=== PATIENT | male | born 1965 | race Caucasian/White ===

== ENCOUNTER 2016-09-05 11:02 | Day surgery (SDC) | payer BC ==
[2016-09-02 11:02] VITALS: BMI 42.0
--- NOTE | 2016-09-05 08:00 | P.GSHP ---
History of Present Illness H&P Date: 09/05/16 CHIEF COMPLAINT: Ventral hernia HISTORY OF PRESENT ILLNESS: The patient is a 51-year-old male who presents with a history of swelling and pain along the abdomen from a hernia. His previous history of ileostomy reversal the right lower quadrant. Studies are consistent with possible incarcerated incisional hernia involving small bowel. Now he presents for surgical intervention. PAST MEDICAL HISTORY: Please see list. PAST SURGICAL HISTORY: Please see list. MEDICATIONS: Please see list. ALLERGIES: Please see list. SOCIAL HISTORY: No illicit drug use FAMILY HISTORY: No reports of Crohn disease or ulcerative colitis. REVIEW OF ORGAN SYSTEMS: CONSTITUTIONAL: No reports of fevers or chills. No reports of weight loss despite prior attempts. GI: Denies any blood in stools. This change in bowel habits. PHYSICAL EXAM: VITAL SIGNS: Stable GENERAL: Well-developed pleasant male in no acute distress. HEENT: No scleral icterus. Extraocular movements grossly intact. Moist buccal mucosa. NECK: Supple without lymphadenopathy. CHEST: Unlabored respirations. Equal bilateral excursions. CARDIOVASCULAR: Regular rate and rhythm. Distal 2+ pulses. ABDOMEN: Soft, nondistended. Palpable defect of the abdomen. No peritoneal signs. MUSCULOSKELETAL: No clubbing, cyanosis, or edema. ASSESSMENT: 1. Incisional ventral hernia PLAN: 1. Recommend proceeding with robotic-assisted laparoscopic incisional ventral hernia repair with mesh. 2. Benefits and risks of surgical intervention was discussed including possibility of open technique. 3. DVT prophylaxis. 4. Antibiotic prophylaxis. 5. Will need CBC and CMP on day of procedure. Past Medical History Past Medical History: No Reported History Additional Past Medical History / Comment(s): OCTOBER 2015 DIVERTICULITIS W/ BOWEL OBSTRUCTION & ILEOSTOMY SURGERY., Hx. of TACHYCARDIA after surgeries. History of Any Multi-Drug Resistant Organisms: None Reported Additional Past Surgical History / Comment(s): RIGHT ELBOW, ILEOSTOMY 10/15/15., PICC LINE INSERTED AND REMOVED. 11/16/15 LOW ANTERIOR RESECTION., COLONOSCOPY. REVERSAL OF ILEOSTOMY Past Anesthesia/Blood Transfusion Reactions: Previous Problems w/ Anesthesia Additional Past Anesthesia/Blood Transfusion Reaction / Comment(s): VERSED GAVE HIM HALLUCINATIONS FOR DAYS AFTER SURGERY. Past Psychological History: No Psychological Hx Reported Smoking Status: Current every day smoker Past Alcohol Use History: Occasional Additional Past Alcohol Use History / Comment(s): Smokes 4 -5 cigars/week on & off. Past Drug Use History: None Reported - Past Family History Mother Family Medical History: Diabetes Mellitus, Hypertension Father Family Medical History: Diabetes Mellitus Medications and Allergies Home Medications Medication Instructions Recorded Confirmed Type Cholecalciferol [Vitamin D3] 5,000 unit PO DAILY 10/07/15 01/18/16 History Multivitamins, Thera [Multivitamin 1 tab PO DAILY 11/05/15 01/18/16 History (formulary)] Allergies Allergy/AdvReac Type Severity Reaction Status Date / Time midazolam HCl [From Versed] AdvReac Unknown Hallucinations Verified 09/02/16 10: 25 for days
[~2016-09-05 11:02] MED LIST: ACETAMINOPHEN IV (For NPO) 1,000 MG in EMPTY BAG 1 BAG IVPB ONE; DEXAMETHASONE SOD PHOSPHATE 10 MG/ML 1 ML VIAL IV ONE; HEPARIN SODIUM,PORCINE 5,000 UNIT/ML 1 ML VIAL SQ ONE; LACTATED RINGERS 1,000 ML IV SCH; LIDOCAINE 1% 20 ML VIAL (10MG/ML) FOR IV START INTRADERMA PRN; ONDANSETRON 4 MG/2 ML VIAL IVP ONE; SCOPOLAMINE 1.5MG/72HR PATCH TRANSDERM ONE; ceFAZolin 3 GM in SODIUM CHLORIDE 0.9% 100 ML IVPB ONE
[2016-09-05 11:32] LABS: CH 29.5; CHCM 32.7; HCT 44.3 % (39.0-53.0); HDW 2.22; HGB 14.5 gm/dL (13.0-17.5); MCH 29.7 pg (25.0-35.0); MCHC 32.8 g/dL (31.0-37.0); MCV 90.7 fL (80.0-100.0); Mean Platelet Volume 7.4; RBC 4.88 m/uL (4.30-5.90); RDW 14.5 % (11.5-15.5); WBC 6.3 k/uL (3.8-10.6)
[2016-09-05 12:44] LABS: ALT 29 U/L (21-72); AST 16 U/L (17-59); Alkaline Phosphatase 54 U/L (38-126); Anion Gap 6 mmol/L; Blood Urea Nitrogen 20 mg/dL (9-20); Calcium 9.1 mg/dL (8.4-10.2); Carbon Dioxide 27 mmol/L (22-30); Chloride 106 mmol/L (98-107); Glucose 118 mg/dL (74-99); Non-African American GFR(MDRD) >60 (>60 ml/min/1.73 sqM); Potassium 4.4 mmol/L (3.5-5.1); Sodium 139 mmol/L (137-145); Total Bilirubin 0.7 mg/dL (0.2-1.3); Total Protein 6.9 g/dL (6.3-8.2)
[2016-09-05] MEDS ORDERED: SUCCINYLCHOLINE CHLORIDE 100 MG/5 ML SYR IV ONE (13:16)
[2016-09-05] MEDS ORDERED: GLYCOPYRROLATE 0.2 MG/ML 2 ML VIAL ONE (13:16)
[2016-09-05] MEDS ORDERED: PROPOFOL 10 MG/ML 20 ML VIAL IV ONE (13:16)
[2016-09-05] MEDS ORDERED: fentaNYL (PF) 50 MCG/ML 2 ML AMP ONE (13:16)
[2016-09-05] MEDS ORDERED: ROCURONIUM BROMIDE 10 MG/ML 10 ML VIAL IV ONE (13:16)
[2016-09-05] MEDS ORDERED: LIDOCAINE 1% INJ 10MG/ML (20 ML MDV) ONE (13:16)
[2016-09-05] MEDS ORDERED: NEOSTIGMINE 1 MG/ML 10 ML VIAL ONE (13:16)
[2016-09-05] MEDS ORDERED: BUPIVACAIN-EPI 0.25%-1:200,000 30 ML VIAL SQ ONE ×2 (13:53)
[2016-09-05] MEDS ORDERED: LACTATED RINGERS 1,000 ML IV ONE (14:19)
[2016-09-05] MEDS: HYDROmorphone 1 MG/ML 1 ML SYRINGE IVP PRN ×4 (15:45→16:26)
[2016-09-05 15:55] VITALS: TEMP 97.6
[2016-09-05] MEDS ORDERED: KETOROLAC 30 MG/ML 1 ML VIAL IVP ONE (16:07)
[2016-09-05] MEDS ORDERED: NALOXONE 0.4 MG/ML 1 ML VIAL IV PRN (16:16)
[2016-09-05] MEDS ORDERED: HYDROcodone/APAP 5-325MG 1 EACH TAB PO PRN (16:16)
--- NOTE | 2016-09-05 16:41 | P.OP ---
Date of Procedure: 09/05/16 Preoperative Diagnosis: Postoperative Diagnosis: Procedure(s) Performed: Implants: Indications for Procedure: Operative Findings: Description of Procedure: SURGEON: PETEY REYNA MD MACHINE STITCHER: Kelsi Amos PREOPERATIVE DIAGNOSES: 1. Initial incisional ventral hernia with intermittent small bowel obstruction. 2. Previous history of diverticulitis requiring right lower quadrant ileostomy and subsequent reversal. 3. Right lower quadrant abdominal pain and swelling. 4. Morbid obesity, BMI 42.1. 5. Hypertension. 6. Obstructive sleep apnea. 7. Glucose intolerance. 8. Change in bowel habits. POSTOPERATIVE DIAGNOSES: 1. Initial incisional ventral hernia with intermittent small bowel obstruction , 4 x 5 cm, right lower quadrant. 2. Previous history of diverticulitis requiring right lower quadrant ileostomy and subsequent reversal. 3. Right lower quadrant abdominal pain and swelling. 4. Morbid obesity, BMI 42.1. 5. Hypertension. 6. Obstructive sleep apnea. 7. Glucose intolerance. 8. Change in bowel habits. OPERATION: 1. Robotic-assisted laparoscopic repair of initial incisional ventral hernia 4 x 5 cm with [address]ight [address] mesh 10 x 15 cm. ANESTHESIA: General with 90 mL 0.25% marcaine with epinephrine. ESTIMATED BLOOD LOSS: 5 mL. SPECIMENS: None. COMPLICATIONS: None. INDICATIONS: The patient is a 51-year-old male who presents with incisional ventral hernia of the right lower quadrant following a previous ileostomy reversal for diverticulitis with complete large bowel obstruction. Surgical intervention with laparoscopic versus robotic and open techniques were reviewed. Placement of mesh was also reviewed. Benefits and risks were thoroughly described. Informed consent was obtained. DESCRIPTION OF PROCEDURE: The patient was brought into the operating room and laid in supine position. After general induction, the abdomen had been prepped and draped in standard sterile fashion. Ioban draping was also placed. Prior to incision, a timeout protocol was confirmed with surgical team regarding the patient's name including procedures to be performed. The robot was primed prior to the procedure. A field block using local anesthetis was placed along hernia site including the proposed port sites. Initial incision was made with an #11 blade along the left upper quadrant. A 0 degree 5 mm laparoscopic trocar entry was performed. Diagnostic laparoscopy demonstrated a large fascial defect of the right lower quadrant measured of 4 cm x 5 cm. Peritoneal adhesions of small bowel to the abdominal wall along the midline was identified. A 12 mm trocar was placed along the left lateral abdominal wall approximately 12 cm lateral to the lower midline. An 8 mm port was placed along the left lower quadrant under direct localization. The 5-mm port was exchanged for an 8 mm robotic port. Placements of the ports were 20 cm from the target anatomy and approximately 10 cm apart. Next, a 10 x [address] mesh was entered into abdominal cavity under direct visualization with 2-0 V-Loc sutures anchored equidistant along the edge of the mesh along the rough side of the mesh that was marked. The peritoneum was marked for placement of the mesh after using a spinal needle to identify borders of the mesh which was marked with indelible marker on the skin. The da [employer] SI robot was previously primed, prepped and draped then docked along the right side of the patient. I then sat at the robot [employer] SI console where working arms of the robot including Bovie cautery connected to robotic scissors and graspers placed by training and development assistant Kelsi Amos. Adhesions along the midline were initially addressed with scissors and gentle retraction along the small bowel without enterotomy. The hernia bordering fascia was cleaned of peritoneal fat to allow for 3 to 5 cm margin of the mesh. Next, hemostasis was checked with cautery. The hernia defect was oversewn using 0-V LOC with imbrication 2. Ventralight ST 10 x 15 cm mesh was placed with the rough side of the mesh toward the anterior abdominal wall. The smooth side was placed towards the bowel. Starting from 12 o'clock, 4 o'clock and 8 o'clock position , 2-0 V-Loc suture was sewn from peritoneum to fascia to the mesh approach. A final endoscopic imaging was obtained. All instruments and pneumoperitoneum were evacuated from the abdominal cavity. The [employer] SI robot was undocked from the patient. I re-scrubbed into the case for closure of incisions. The fascia of the 12-mm port was probed and was closed using 0 Vicryl and Андрей Metz. The incisions were reapproximated using 4-0 Monocryl in an interrupted subcuticular fashion. Dermabond was applied to the skin. At the end of the procedure, needle, sponge, and instrument count had been verified correct by rn medical surgical. The patient was taken to the postanesthesia care unit in stable condition with abdominal binder. FINDINGS: 1. Initial incisional hernia right lower quadrant 4 x 5 cm. 2. Peritoneal adhesions small bowel to abdominal wall along midline lysed without enterotomies. Plan - Discharge Summary New Discharge Prescriptions: New Hydrocodone/Acetaminophen [[place] 5-325] 1 - 2 each PO Q6HR PRN #20 tab PRN Reason: Pain No Action Cholecalciferol [Vitamin D3] 5,000 unit PO DAILY Multivitamins, Thera [Multivitamin (formulary)] 1 tab PO DAILY Discharge Medication List Cholecalciferol [Vitamin D3] 5,000 unit PO DAILY 10/07/15 [History] Multivitamins, Thera [Multivitamin (formulary)] 1 tab PO DAILY 11/05/15 [History ] Hydrocodone/Acetaminophen [[place] 5-325] 1 - 2 each PO Q6HR PRN #20 tab 09/05/16 [Rx] Follow up Appointment(s)/Referral(s): Petey Reyna MD [STAFF PHYSICIAN] - 09/20/16 (Please call to confirm time) Patient Instructions/Handouts: *Surgery [facility] - (Anesthesia) Discharge Instructions Outpatient Surgery, Laparoscopic Herniorrhaphy (DC), Abdominal Binder (DC) Activity/Diet/Wound Care/Special Instructions: No lifting over 4 pounds in 2 weeks. May shower. No bath tub soaks. Discharge Disposition: HOME SELF-CARE
[2016-09-05 17:00] VITALS: RESP 18
[2016-09-05 17:19] VITALS: BP 120/73; PULSE 91
== END 2016-09-05 18:00 | disposition home or self-care (01) ==
LOC: OR 11:02
PROVIDERS: ATTEND Surgery Plastic and Reconstructive Surgery
DX: K43.2 Incisional hernia without obstruction or gangrene (principal); K43.9 Ventral hernia without obstruction or gangrene; K66.0 Peritoneal adhesions (postprocedural) (postinfection); Z87.19 Personal history of other diseases of the digestive system; E66.01 Morbid (severe) obesity due to excess calories; Z68.41 Body mass index [BMI] 40.0-44.9, adult; I10 Essential (primary) hypertension; G47.33 Obstructive sleep apnea (adult) (pediatric); E74.39 Other disorders of intestinal carbohydrate absorption; R19.4 Change in bowel habit; F17.290 Nicotine dependence, other tobacco product, uncomplicated; Z79.899 Other long term (current) drug therapy
CPT/HCPCS: 80053; 85027; 49654; C1781; J1644; J1100; J2710; J0690; J2405; J2001; J3010; J1885; J1170; J0131; J0330; J2704

== ENCOUNTER → 2021-10-13 | Outpatient (CLI) | payer OTHER ==
--- NOTE | 2021-10-13 14:17 | XR ---
EXAMINATION TYPE: XR KUB DATE OF EXAM: 10/13/2021 COMPARISON: NONE HISTORY: Pain TECHNIQUE: One view abdominal series FINDINGS: The osseous structures are intact. The bowel gas pattern is nonspecific. Calcifications in the left abdomen are noted compatible with renal calculi the largest measuring 9.7 mm. Retained fecal debris t hroughout the colon. Hypertrophic degenerative change of the spine. Calcific density or sclerotic den sity overlying the posterior margin of the right 10th rib. A tiny punctate calcification measuring 2 mm overlying the right kidney. IMPRESSION: 1. Suspect 2 mm lower pole right renal calculus. 2. Suspect two calcifications overlying the lower pole the left kidney the largest measuring 9.7 mm. 3. sclerotic lesion overlying the right 10th rib possibly related to bone.
== END | disposition home or self-care (01) ==
LOC: RADXRMAIN 13:40
PROVIDERS: ATTEND Urology
DX: R10.9 Unspecified abdominal pain (principal); R31.29 Other microscopic hematuria
CPT/HCPCS: 74018

== ENCOUNTER → 2021-11-30 | Outpatient (CLI) | payer OTHER ==
--- NOTE | 2021-11-30 10:15 | MR ---
EXAMINATION TYPE: MR Prostate wo/w con DATE OF EXAM: 11/30/2021 10:00 AM COMPARISON: CT abdomen pelvis 10/07/2015. CLINICAL INDICATION:Male, 56 years old with history of Z87.891 personal hx of tobacco use; TECHNIQUE: Multi-planar, multi-sequence imaging of the pelvis is performed prior to and following the uncomplicated administration of bolus intravenous gadolinium. CONTRAST: 14 Gadavist Interpretive Criteria: PI-RADS v2.1 SERUM PSA: 7.1 on 10/13/2021. SURGICAL PATHOLOGY: No data available. FINDINGS: Prostatic dimensions: 6.1 x 5.6 x 6.3 cm. Ellipsoid Volume:112.68 (PSA density=0.06 ng/mL/mL) PSA density: 0.06 ng/mL/mL. CENTRAL GLAND (Central and Transition Zones/CZ+TZ): Multiple bilateral, heterogenous appearing hypertrophic stromal nodules, without suspicious lesion. M edian lobe hypertrophy with protrusion into the base of the bladder. (PI-RADS 2) PERIPHERAL ZONE (PZ): Bilateral linear, indistinct wedgelike areas of low ADC, and low T2 signal, No evidence of masslike a bnormality, or localized perfusional hypervascularity, to further suggest a focus of clinically signi ficant prostate cancer. (PI-RADS 2) SEMINAL VESICLES (SV): Symmetric and unremarkable. PERIPROSTATIC TISSUES: Unremarkable. LYMPH NODES: No enlarged pelvic lymph node. REMAINING PELVIS: Bladder wall is within normal limits given distention. No abnormal free or organized intrapelvic fluid collection. No pathologic bowel dilation or mural thickening. The right ureter is asymmetrically dilated measuring up to 9 mm. OSSEOUS STRUCTURES: The inferior pubic ramus high T2 signal low T1 signal cysts. No suspicious osseous abnormality. IMPRESSION: 1. No specific features for high-risk prostate cancer. There are numerous circumscribed transition zo ne nodules and low-risk peripheral zone abnormalities (PI-RADS 2). 2. Right hydroureter which is asymmetric and could be physiologic. There is concern for hydronephrosi s 3. Substantial BPH, estimated gland volume 113 mL.
== END | disposition home or self-care (01) ==
LOC: RADMRIMAIN 08:34
PROVIDERS: ATTEND Urology
DX: R97.20 Elevated prostate specific antigen [PSA] (principal); Z87.891 Personal history of nicotine dependence
CPT/HCPCS: 72197; A9585

== ENCOUNTER 2021-12-02 08:50 | Emergency (ER) | payer OTHER ==
[2021-12-02 09:06] VITALS: BP 149/79; TEMP 97.5
[2021-12-02] MEDS ORDERED: SODIUM CHLORIDE 0.9% 1,000 ML IV STA (09:43)
[2021-12-02] MEDS ORDERED: ONDANSETRON 4 MG/2 ML VIAL IVP STA (09:43)
[2021-12-02] MEDS ORDERED: SODIUM CHLORIDE 0.9% 500 ML 500 ML IV STA (09:43)
[2021-12-02] MEDS ORDERED: KETOROLAC 15 MG/ML 1 ML VIAL IVP STA (09:43)
--- NOTE | 2021-12-02 10:03 | ED ---
Abdominal Pain HPI - General Chief Complaint: Abdominal Pain Stated Complaint: R side pain Time Seen by Provider: 12/02/21 09:09 Source: patient, RN notes reviewed Mode of arrival: ambulatory Limitations: no limitations - History of Present Illness Initial Comments: This a 56-year-old male present emergency department with chief complaint of right-sided flank pain. Patient states she was seen by urology recently and an ultrasound showing multiple stones. Patient states today started having severe pain that radiated around to his lower abdomen from his right flank. Patient does admit to nausea vomiting he took some old [place] with no relief. Denies any fevers chills he has notany hematuria or complaint of any dysuria. Denies chest pain shortness breath fever chills or any left-sided abdominal pain. - Related Data Home Medications Medication Instructions Recorded Confirmed Atorvastatin [Lipitor] 10 mg PO HS 12/02/21 12/02/21 Dulaglutide [Trulicity] 1.5 mg SQ MO 12/02/21 12/02/21 Metoprolol Succinate (ER) [Toprol 25 mg PO BID 12/02/21 12/02/21 Xl] Previous Rx's Medication Instructions Recorded HYDROcodone/APAP 5-325MG [[place] 5] 1 each PO Q6HR PRN #12 tab 12/02/21 Ketorolac [Toradol] 10 mg PO Q8HR #15 tab 12/02/21 Ondansetron Odt [Zofran Odt] 4 mg PO Q8HR PRN #10 tab 12/02/21 Tamsulosin [Flomax] 0.4 mg PO DAILY #7 cap 12/02/21 Allergies Allergy/AdvReac Type Severity Reaction Status Date / Time midazolam HCl [From Versed] AdvReac Unknown Hallucinations Verified 12/02/21 11:04 for days Review of Systems ROS Statement: Those systems with pertinent positive or pertinent negative responses have been documented in the HPI. ROS Other: All systems not noted in ROS Statement are negative. Past Medical History Past Medical History: No Reported History Additional Past Medical History / Comment(s): OCTOBER 2015 DIVERTICULITIS W/ BOWEL OBSTRUCTION & ILEOSTOMY SURGERY., Hx. of TACHYCARDIA after surgeries. History of Any Multi-Drug Resistant Organisms: None Reported Additional Past Surgical History / Comment(s): RIGHT ELBOW, ILEOSTOMY 10/15/15., PICC LINE INSERTED AND REMOVED. 11/16/15 LOW ANTERIOR RESECTION., COLONOSCOPY.01-18-16 REVERSAL OF ILEOSTOMY Past Anesthesia/Blood Transfusion Reactions: Previous Problems w/ Anesthesia Additional Past Anesthesia/Blood Transfusion Reaction / Comment(s): VERSED GAVE HIM HALLUCINATIONS FOR DAYS AFTER SURGERY. Past Psychological History: No Psychological Hx Reported Smoking Status: Light tobacco smoker Past Alcohol Use History: Occasional Past Drug Use History: None Reported - Past Family History Mother Family Medical History: Diabetes Mellitus, Hypertension Father Family Medical History: Diabetes Mellitus General Exam Limitations: no limitations General appearance: alert, in no apparent distress Head exam: Present: atraumatic, normocephalic, normal inspection Eye exam: Present: normal appearance, PERRL, EOMI. Absent: scleral icterus, conjunctival injection, periorbital swelling ENT exam: Present: normal exam, normal oropharynx, mucous membranes moist Neck exam: Present: normal inspection, full ROM. Absent: tenderness, meningismus, lymphadenopathy Respiratory exam: Present: normal lung sounds bilaterally. Absent: respiratory distress, wheezes, rales, rhonchi, stridor Cardiovascular Exam: Present: regular rate, normal rhythm, normal heart sounds. Absent: systolic murmur, diastolic murmur, rubs, gallop, clicks Back exam: Absent: CVA tenderness (R), CVA tenderness (L) Neurological exam: Present: alert Skin exam: Present: warm, dry, intact, normal color. Absent: rash Course Vital Signs 12/02/21 09:03 Temperature 97.5 F L Pulse Rate 66 Respiratory 18 Rate Blood Pressure 149/79 O2 Sat by Pulse 98 Oximetry Medical Decision Making - Medical Decision Making 36-year-old presented for right flank pain. Patient has hematuria, had recent ultrasound outpatient showed kidney stone. Patient symptoms consistent with a stone. Patient feels improved after Toradol. Patient discharged in stable condition return parameters discussed. - Lab Data Result diagrams: 12/02/21 10:22 12/02/21 10:22 Lab Results 12/02/21 12/02/21 12/02/21 Range/Units 09:31 10:22 10:22 WBC 9.6 (3.8-10.6) k/uL RBC 5.04 (4.30-5.90) m/uL Hgb 15.3 (13.0-17.5) gm/dL Hct 46.6 (39.0-53.0) % MCV 92.3 (80.0-100.0) fL MCH 30.3 (25.0-35.0) pg MCHC 32.8 (31.0-37.0) g/dL RDW 13.1 (11.5-15.5) % Plt Count 263 (150-450) k/uL MPV 7.8 Neutrophils % 85 % Lymphocytes % 9 % Monocytes % 5 % Eosinophils % 0 % Basophils % 0 % Neutrophils # 8.2 H (1.3-7.7) k/uL Lymphocytes # 0.8 L (1.0-4.8) k/uL Monocytes # 0.4 (0-1.0) k/uL Eosinophils # 0.0 (0-0.7) k/uL Basophils # 0.0 (0-0.2) k/uL Sodium 138 (137-145) mmol/L Potassium 5.2 H (3.5-5.1) mmol/L Chloride 105 (98-107) mmol/L Carbon Dioxide 24 (22-30) mmol/L Anion Gap 9 mmol/L BUN 27 H (9-20) mg/dL Creatinine 1.26 H (0.66-1.25) mg/dL Est GFR (CKD-EPI)AfAm 73 (>60 ml/min/1.73 sqM) Est GFR (CKD-EPI)NonAf 63 (>60 ml/min/1.73 sqM) Glucose 155 H (74-99) mg/dL Calcium 9.0 (8.4-10.2) mg/dL Total Bilirubin 0.8 (0.2-1.3) mg/dL AST 30 (17-59) U/L ALT 19 (4-49) U/L Alkaline Phosphatase 54 (38-126) U/L Total Protein 7.6 (6.3-8.2) g/dL Albumin 4.3 (3.5-5.0) g/dL Urine Color Yellow Urine Appearance Clear (Clear) Urine pH 7.0 (5.0-8.0) Ur Specific [place] 1.024 (1.001-1.035) Urine Protein Negative (Negative) Urine Glucose (UA) Negative (Negative) Urine Ketones Negative (Negative) Urine Blood Moderate H (Negative) Urine Nitrite Negative (Negative) Urine Bilirubin Negative (Negative) Urine Urobilinogen <2.0 (<2.0) mg/dL Ur Leukocyte Esterase Negative (Negative) Urine RBC 132 H (0-5) /hpf Urine WBC 1 (0-5) /hpf Amorphous Sediment Rare H (None) /hpf Disposition Clinical Impression: Kidney stone Disposition: HOME SELF-CARE Condition: Stable Instructions (If sedation given, give patient instructions): Kidney Stones (ED) Additional Instructions: Please return to the Emergency Department if symptoms worsen or any other concerns. Prescriptions: Tamsulosin [Flomax] 0.4 mg PO DAILY #7 cap HYDROcodone/APAP 5-325MG [[place] 5] 1 each PO Q6HR PRN #12 tab PRN Reason: Pain Ketorolac [Toradol] 10 mg PO Q8HR #15 tab Ondansetron Odt [Zofran Odt] 4 mg PO Q8HR PRN #10 tab PRN Reason: Nausea Is patient prescribed a controlled substance at d/c from ED?: Yes When asked, does pt state using other controlled substances?: No If prescribed controlled substance>3 days was MAPS reviewed?: Prescribed <3 Days If opioid is for acute pain is fill amount 7 days or less?: Yes If Rx opioid, was Start Talking consent form obtained?: Yes Referrals: Garfield Munguia MD [Primary Care Provider] - 1-2 days Landry Saunders MD [STAFF PHYSICIAN] - 1-2 days Time of Disposition: 11:19
[2021-12-02 10:10] LABS: Amorphous Sediment,Urine Rare /hpf; Appearance,Urine Clear (Clear); Bilirubin,Urine Negative (Negative); Blood,Urine Moderate (Negative); Color,Urine Yellow; Glucose,Urine (UA) Negative (Negative); Ketones,Urine Negative (Negative); Leukocyte Esterase,Urine Negative (Negative); Nitrite,Urine Negative (Negative); Protein,Urine Negative (Negative); RBC,Urine 132 /hpf (0-5); Specific Gravity,Urine 1.024 (1.001-1.035); Urobilinogen,Urine <2.0 mg/dL (<2.0); WBC,Urine 1 /hpf (0-5)
[2021-12-02 10:34] LABS: Basophils % (A) 0 %; Eosinophils % (A) 0 %; HCT 46.6 % (39.0-53.0); HGB 15.3 gm/dL (13.0-17.5); Lymphocytes # (A) 0.8 k/uL (1.0-4.8); Lymphocytes % (A) 9 %; MCH 30.3 pg (25.0-35.0); MCHC 32.8 g/dL (31.0-37.0); MCV 92.3 fL (80.0-100.0); Mean Platelet Volume 7.8; Monocytes # (A) 0.4 k/uL (0-1.0); Monocytes % (A) 5 %; Neutrophils # (A) 8.2 k/uL (1.3-7.7); Neutrophils % (A) 85 %; Platelet Count 263 k/uL (150-450); RBC 5.04 m/uL (4.30-5.90); RDW 13.1 % (11.5-15.5); WBC 9.6 k/uL (3.8-10.6)
[2021-12-02 10:43] LABS: Albumin 4.3 g/dL (3.5-5.0); Total Bilirubin 0.8 mg/dL (0.2-1.3); Total Protein 7.6 g/dL (6.3-8.2)
[2021-12-02 10:45] LABS: Potassium 5.2 mmol/L (3.5-5.1)
--- NOTE | 2021-12-02 10:59 | XR ---
EXAMINATION TYPE: XR KUB DATE OF EXAM: 12/02/2021 COMPARISON: 10/13/2021 HISTORY: Flank pain TECHNIQUE: One view abdominal series FINDINGS: The osseous structures are intact. The bowel gas pattern is nonspecific. Retained fecal debris throu ghout the colon. Hypertrophic degenerative change of the spine. Calcific density or sclerotic density overlying the posterior margin of the right 10th rib. Right kidney: Limited assessment due to extensive overlying bowel content. Left kidney: There are at least 2 calcifications overlying the lower pole the left kidney the largest measuring 8.7 mm. IMPRESSION: 1. Stable appearing left-sided lower pole nephrolithiasis.
[2021-12-02 12:07] VITALS: PULSE 84; RESP 16
== END 2021-12-02 12:07 | disposition home or self-care (01) ==
LOC: EC 08:50
DX: N20.0 Calculus of kidney (principal); F17.210 Nicotine dependence, cigarettes, uncomplicated; Z88.4 Allergy status to anesthetic agent; Z79.899 Other long term (current) drug therapy
CPT/HCPCS: 36415; 80053; 85025; 81001; 74018; 99284; 96374; 96375; 96361; J2405; J1885

== ENCOUNTER 2022-03-23 07:52 | Day surgery (SDC) | payer OTHER ==
[~2022-03-23 07:52] MED LIST changes: -ACETAMINOPHEN IV (For NPO) 1,000 MG in EMPTY BAG 1 BAG IVPB ONE; -DEXAMETHASONE SOD PHOSPHATE 10 MG/ML 1 ML VIAL IV ONE; -HEPARIN SODIUM,PORCINE 5,000 UNIT/ML 1 ML VIAL SQ ONE; -LIDOCAINE 1% 20 ML VIAL (10MG/ML) FOR IV START INTRADERMA PRN; -ONDANSETRON 4 MG/2 ML VIAL IVP ONE; -SCOPOLAMINE 1.5MG/72HR PATCH TRANSDERM ONE; -ceFAZolin 3 GM in SODIUM CHLORIDE 0.9% 100 ML IVPB ONE
--- NOTE | 2022-03-23 08:21 | P.GSHP ---
History of Present Illness CHIEF COMPLAINT: Colon screen HISTORY OF PRESENT ILLNESS: The patient is a 56-year-old male who presents for colon screen. Lower endoscopy was offered for further evaluation and management. PAST MEDICAL HISTORY: Please see list. PAST SURGICAL HISTORY: Please see list. MEDICATIONS: Please see list. ALLERGIES: Please see list. SOCIAL HISTORY: No illicit drug use FAMILY HISTORY: No reports of Crohn disease or ulcerative colitis. REVIEW OF ORGAN SYSTEMS: CONSTITUTIONAL: No reports of fevers or chills. PHYSICAL EXAM: VITAL SIGNS: Stable GENERAL: Well-developed pleasant in no acute distress. HEENT: No scleral icterus. Extraocular movements grossly intact. Moist buccal mucosa. NECK: Supple without lymphadenopathy. CHEST: Unlabored respirations. Equal bilateral excursions. CARDIOVASCULAR: Regular rate and rhythm. Distal 2+ pulses. ABDOMEN: Soft, nontender, nondistended. MUSCULOSKELETAL: No clubbing, cyanosis, or edema. ASSESSMENT: 1. Colon screen. PLAN: 1. Recommend proceeding with a lower endoscopy Past Medical History Past Medical History: Diabetes Mellitus, Hypertension Additional Past Medical History / Comment(s): RENAL CALCULI. OCTOBER 2015 DIVERTICULITIS W/ BOWEL OBSTRUCTION & ILEOSTOMY SURGERY., Hx. of TACHYCARDIA after surgeries. History of Any Multi-Drug Resistant Organisms: None Reported Past Surgical History: Bowel Resection Additional Past Surgical History / Comment(s): RIGHT ELBOW, ILEOSTOMY 10/15/15., PICC LINE INSERTED AND REMOVED. 11/16/15 LOW ANTERIOR RESECTION., COLONOSCOPY.01-18-16 REVERSAL OF ILEOSTOMY Past Anesthesia/Blood Transfusion Reactions: Previous Problems w/ Anesthesia Additional Past Anesthesia/Blood Transfusion Reaction / Comment(s): VERSED GAVE HIM HALLUCINATIONS FOR DAYS AFTER SURGERY. Past Psychological History: No Psychological Hx Reported Smoking Status: Light tobacco smoker Past Alcohol Use History: Occasional Additional Past Alcohol Use History / Comment(s): Smokes 4 -5 cigars/week on & off. Past Drug Use History: None Reported - Past Family History Mother Family Medical History: Diabetes Mellitus, Hypertension Father Family Medical History: Diabetes Mellitus Medications and Allergies Home Medications Medication Instructions Recorded Confirmed Type Atorvastatin [Lipitor] 5 mg PO HS 12/02/21 03/23/22 History Dulaglutide [Trulicity] 1.5 mg SQ MO 12/02/21 03/23/22 History Metoprolol Succinate (ER) [Toprol 25 mg PO BID 12/02/21 03/23/22 History Xl] Tamsulosin [Flomax] 0.4 mg PO DAILY #7 cap 12/02/21 03/23/22 Rx Allergies Allergy/AdvReac Type Severity Reaction Status Date / Time midazolam HCl [From Versed] AdvReac Unknown Hallucinations Verified 03/23/22 08:15 for days
[2022-03-23] MEDS ORDERED: PROPOFOL 10 MG/ML 20 ML VIAL IV ONE (08:32)
[2022-03-23] MEDS ORDERED: LIDOCAINE 2% INJ 20 MG/ML (2 ML VIAL) ONE (08:32)
[2022-03-23 08:33] VITALS: TEMP 98
--- NOTE | 2022-03-23 08:35 | P.HPADDEND ---
H&P Addendum H&P Addendum Date: 03/23/22 Patient reports moderate gastroesophageal reflux disease and controlled with medications over 3-6 months. Symptoms are present with laying down. We'll proceed with upper endoscopy.
[2022-03-23 08:36] LABS: Glucose,Whole Blood 122 mg/dL (70-110)
--- NOTE | 2022-03-23 08:52 | P.PCN ---
Date of Procedure: 03/23/22 Description of Procedure: PREOPERATIVE DIAGNOSIS: Gastroesophageal reflux disease. Morbid obesity. POSTOPERATIVE DIAGNOSIS: Gastroesophageal reflux disease. Morbid obesity. Gastritis. OPERATION: Esophagogastroduodenoscopy with biopsies along antrum and duodenum. SURGEON: Kathryn Reyna MD ANESTHESIA: MAC. INDICATIONS: The patient is a 56-year-old male who presents with reflux disease. Benefits and risks of the procedure were described. Informed consent was obtained. DESCRIPTION: The patient was brought into the endoscopy suite and laid in the left lateral decubitus position. An Olympus gastroscope was passed along the posterior oropharynx down to the distal esophagus where the squamocolumnar junction was encountered at 40 cm from the incisors. The stomach was entered and no bile reflux was found. Additional findings are listed below. Biopsies with cold forceps were obtained of the antrum. The first through third portion of the duodenum was examined. Retroflexion of the scope confirmed Hill grade 2 lower esophageal valve. The squamocolumnar junction demonstrated LA grade A erosive esophagitis. The stomach was desufflated. The patient tolerated the procedure well. FINDINGS: Squamocolumnar junction 40 cm from the incisors. Diaphragmatic hiatus at 40 cm. Hill grade 2 lower esophageal valve. LA grade A erosive esophagitis. Biopsies obtained of duodenum Chronic gastritis RECOMMENDATIONS: Upper endoscopy as needed.
--- NOTE | 2022-03-23 09:10 | P.PCN ---
Date of Procedure: 03/23/22 Description of Procedure: PREOPERATIVE DIAGNOSIS: Family history colon polyps History of diverticulitis Colonoscopy screening. History of sigmoid colectomy POSTOPERATIVE DIAGNOSIS: Family history colon polyps Pandiverticulosis Colonoscopy screening. OPERATION: Colonoscopy to the cecum, ileocecal valve and appendiceal orifice. SURGEON: Kathryn Reyna MD. ANESTHESIA: MAC. INDICATIONS: The patient is a 56-year-old female who presents for colonoscopy screening. Last colonoscopy over 5 years ago. Benefits and risks were described and informed consent was obtained. DESCRIPTION OF PROCEDURE: The patient had undergone Sutab prep. The patient had been brought into the operating room and laid in the left lateral decubitus position. After adequate intravenous sedation, the rectum was examined with 2% lidocaine jelly. No external hemorrhoids were encountered. The rectal tone was within normal limits. No lesions were palpated in the rectal vault. An Olympus colonoscope was advanced until the cecum, ileocecal valve and appendiceal orifice were clearly viewed. The prep was excellent. Scattered diverticulosis was encountered. No colonic polyps were found. No evidence of focal colitis was found. Retroflexion of the scope demonstrated grade 1 internal hemorrhoids without active bleeding or inflammation. The colon was desufflated. The patient had tolerated the procedure well. Withdrawal time was over 6 minutes. FINDINGS: Aronchick preparation quality scale 1 (1-5) Internal hemorrhoids, grade 1 No external prolapsed hemorrhoids. No arteriovenous malformations. No adenomatous polyps. No focal colitis. Sigmoid colon anastomosis unremarkable. RECOMMENDATIONS: Lower endoscopy in 5 years, 2026 Plan - Discharge Summary Discharge Rx Participant: No New Discharge Prescriptions: Continue Atorvastatin [Lipitor] 5 mg PO HS Dulaglutide [Trulicity] 1.5 mg SQ MO Tamsulosin [Flomax] 0.4 mg PO DAILY #7 cap Metoprolol Succinate (ER) [Toprol XL] 25 mg PO BID Discharge Medication List Atorvastatin [Lipitor] 5 mg PO HS 12/02/21 [History] Dulaglutide [Trulicity] 1.5 mg SQ MO 12/02/21 [History] Metoprolol Succinate (ER) [Toprol XL] 25 mg PO BID 12/02/21 [History] Tamsulosin [Flomax] 0.4 mg PO DAILY #7 cap 12/02/21 [Rx] Follow up Appointment(s)/Referral(s): Kathryn Reyna MD [STAFF PHYSICIAN] - As Needed Patient Instructions/Handouts: Diverticulosis Diet (GEN), Diverticulosis (ED), GERD (Gastroesophageal Reflux Disease) (ED) Activity/Diet/Wound Care/Special Instructions: Repeat colonoscopy 5 years, 2026 Discharge Disposition: HOME SELF-CARE
[2022-03-23 09:11] VITALS: RESP 18
[2022-03-23 09:50] VITALS: BP 113/75; PULSE 65
== END 2022-03-23 09:50 | disposition home or self-care (01) ==
LOC: ORWHC2ENDO 07:52
PROVIDERS: ATTEND Surgery Plastic and Reconstructive Surgery
DX: Z12.11 Encounter for screening for malignant neoplasm of colon (principal); K29.50 Unspecified chronic gastritis without bleeding; K21.9 Gastro-esophageal reflux disease without esophagitis; K57.30 Diverticulosis of large intestine without perforation or abscess without bleeding; K64.0 First degree hemorrhoids; E11.9 Type 2 diabetes mellitus without complications; E66.01 Morbid (severe) obesity due to excess calories; I10 Essential (primary) hypertension; R44.3 Hallucinations, unspecified; F17.210 Nicotine dependence, cigarettes, uncomplicated; F10.90 Alcohol use, unspecified, uncomplicated; Z87.19 Personal history of other diseases of the digestive system; Z83.71 Family history of colonic polyps; Z98.84 Bariatric surgery status; Z83.3 Family history of diabetes mellitus; Z82.49 Family history of ischemic heart disease and other diseases of the circulatory system; Z79.899 Other long term (current) drug therapy; Z88.5 Allergy status to narcotic agent
CPT/HCPCS: 88305; 45378; 43239; J2704; J2001